=== PATIENT | male | born 1955 | race Two or more races ===

== ENCOUNTER 2025-07-16 13:11 | Inpatient (IN) | payer OTHER ==
[~2025-07-16] VITALS: Ht 165.1 cm; Wt 61.2 kg
[2025-07-16] MEDS ORDERED: ATORVASTATIN CA20 MG PO (13:27)
[2025-07-16] MEDS ORDERED: JENTADUETO XR1 EAC1 PO (13:27)
[2025-07-16] MEDS ORDERED: LACTOBACILLUS ACIDOPHILUS 1 CAP CAP PO ONE (14:15)
[2025-07-16] MEDS ORDERED: ONDANSETRON HCL 2 MG/ML VIAL IV ONE (14:15)
[2025-07-16] MEDS ORDERED: FAMOTIDINE/PF 20 MG/2 ML VIAL IV ONE (14:15)
[2025-07-16] MEDS ORDERED: 0.9 % SODIUM CHLORIDE 1,000 ML IV ONE (14:15)
[2025-07-16 15:00] LABS: BASO % 1.6 % (0.1-1.2); EOS # 0.00 (0.04-0.54); EOS % 0.0 % (0.7-7.0); LYMPH # 0.13 (1.18-3.74); LYMPH % 5.3 % (19.3-53.1); MEAN PLATELET VOLUME 10.70 fl (9.4-12.4); MONO # 0.20 (0.24-0.82); MONO % 8.1 % (4.7-12.5); NEUT # 2.07 (1.56-6.13); NEUT % 83.8 % (34.0-71.1); RED CELL DISTRIBUTION WIDTH 17.9 % (11.6-14.4)
[2025-07-16 15:34] LABS: ALT/SGPT 16.0 U/L (12-78); AST/SGOT 24.0 U/L (15-37); BILIRUBIN TOTAL 1.19 mg/dL (0.3-1.2); BILIRUBIN,CONJUGATED 0.52 mg/dL (0.0-0.2); BUN CREA RATIO 23.0 (7.0-25.0); CREATININE SERUM 2.04 mg/dL (0.70-1.30); GFR 32.35; GLOBULINA 3.7 G/DL (2.4-3.5); OSMOLALITY SERUM 307.0 MOSM/KG (275-295)
[2025-07-16 15:35] LABS: INR 1.36
[2025-07-16 15:39] LABS: GLUCOSE FASTING 280.0 mg/dL (65-100)
[2025-07-16] MEDS ORDERED: MORPHINE SULFATE 4 MG/ML VIAL IV ONE (16:45)
[2025-07-16] MEDS ORDERED: PIPERACILLIN/TAZOBACTAM SODIUM 3.375 GM VIAL IV ONE (17:15)
[2025-07-16] MEDS ORDERED: PIPERACILLIN/TAZOBACTAM SODIUM 2.25 GM VIAL IV ONE (18:15)
[2025-07-16 19:08] LABS: URINE APPEARANCE Cloudy; URINE BILIRRUBIN Negative (NEGATIVE); URINE BLOOD Small; URINE COLOR Dark Yellow; URINE KETONE Trace (NEGATIVE); URINE LEUKOCYTE Negative; URINE NITRATE Negative; URINE PROTEIN 30 (NEGATIVE); URINE UROBILINOGEN 0.2 E.U./dl
[2025-07-16 19:12] LABS: URINE BACTERIA 52.8 uL (0.0-1933); URINE CAST 11.29 uL (0.0-1.40); URINE EPITHELIAL CELLS 49.9 uL (0.0-38.8); URINE RBC 3.3 uL (0.0-20.8); URINE WBC 5.3 uL (0.0-23.2)
[2025-07-16 19:39] LABS: URINE GLUCOSE >=1000 MG/DL (NEGATIVE)
[2025-07-16 19:40] LABS: TYPE CELLS SQUAMOUS; URINE CRYSTALS FEW /HPF
[2025-07-16 19:41] LABS: URINE MUCUS SCANT
[2025-07-16] MEDS ORDERED: INSULIN LISPRO 1,000 UNIT/10 ML UNITS SUBCUTANEO PRN (20:00)
[2025-07-16] MEDS ORDERED: DEXTROSE 50 % IN WATER 0.5 G/ML DISP.SYRIN IV PRN (20:00)
[2025-07-16] MEDS ORDERED: MORPHINE SULFATE 4 MG/ML VIAL IV SCH (20:00)
[2025-07-16] MEDS ORDERED: ENOXAPARIN SODIUM 30 MG/0.3 ML SYRINGE SUBCUTANEO SCH (20:07)
[2025-07-16] MEDS ORDERED: ONDANSETRON HCL 4 MG in 0.9 % SODIUM CHLORIDE 50 ML IV PRN (20:15)
[2025-07-16] MEDS ORDERED: MORPHINE SULFATE 2 MG/ML CARTRIDGE IV PRN (20:15)
[2025-07-16] MEDS ORDERED: ENOXAPARIN SODIUM 30 MG/0.3 ML SYRINGE SUBCUTANEO ONE (20:15)
[2025-07-16] MEDS ORDERED: 0.9 % SODIUM CHLORIDE 1,000 ML IV SCH (20:15)
[2025-07-16] MEDS ORDERED: CIPROFLOXACIN IN 5 % DEXTROSE 200 ML IV SCH (21:00)
[2025-07-16 22:50] LABS: ABG PH 7.249 (7.35-7.45); ABG PO2 115.1 mmHg (80-100); BICARBONATE 8.6 mmol/l (23-25); o2 21 %
[2025-07-17] VITALS (24 sets, daily range): BP systolic 55–105; BP diastolic 46–94; O2SAT 95–100
[2025-07-17 00:06] LABS: BUN CREA RATIO 22.0 (7.0-25.0); CREATININE SERUM 2.29 mg/dL (0.70-1.30); GFR 28.31; GLUCOSE FASTING 272.0 mg/dL (65-100); OSMOLALITY SERUM 308.0 MOSM/KG (275-295)
[2025-07-17 08:00] LABS: ALT/SGPT 68.0 U/L (12-78); AST/SGOT 114.0 U/L (15-37); BILIRUBIN TOTAL 0.76 mg/dL (0.3-1.2); BUN CREA RATIO 23.0 (7.0-25.0); CREATININE SERUM 2.27 mg/dL (0.70-1.30); GFR 28.6; GLOBULINA 2.4 G/DL (2.4-3.5); GLUCOSE FASTING 163.0 mg/dL (65-100); OSMOLALITY SERUM 308.0 MOSM/KG (275-295)
[2025-07-17 09:38] LABS: BASO % 1.0 % (0.1-1.2); EOS # 0.05 (0.04-0.54); EOS % 2.4 % (0.7-7.0); LYMPH # 0.11 (1.18-3.74); LYMPH % 5.3 % (19.3-53.1); MEAN PLATELET VOLUME 10.60 fl (9.4-12.4); MONO # 0.27 (0.24-0.82); NEUT # 1.58 (1.56-6.13); NEUT % 76.4 % (34.0-71.1); RED CELL DISTRIBUTION WIDTH 17.8 % (11.6-14.4)
[2025-07-17 09:56] LABS: MONO % 13.0 % (4.7-12.5)
[2025-07-17] MEDS ORDERED: SODIUM CHLORIDE 0.45 % 1,000 ML IV STA (16:41)
[2025-07-17] MEDS ORDERED: NOREPINEPHRINE BITARTRATE 8 MG in DEXTROSE 5 % IN WATER 250 ML IV SCH ×2 (16:45→17:00)
[2025-07-17] MEDS ORDERED: AA 4.25%/CAL/LYTES/DEXT 5% 1,000 ML PERIFERAL SCH (17:00)
[2025-07-17] MEDS ORDERED: PANTOPRAZOLE SODIUM 40 MG/VIAL VIAL IV STA (17:09)
[2025-07-17] MEDS ORDERED: NOREPINEPHRINE BITARTRATE 4 MG in DEXTROSE 5 % IN WATER 250 ML IV SCH ×2 (22:00)
[2025-07-18] VITALS (16 sets, daily range): BP systolic 76–131; BP diastolic 51–78; O2SAT 98–100
[2025-07-18 08:19] LABS: BASO % 0.6 % (0.1-1.2); EOS # 0.03 (0.04-0.54); EOS % 1.7 % (0.7-7.0); LYMPH # 0.09 (1.18-3.74); LYMPH % 5.1 % (19.3-53.1); MONO # 0.19 (0.24-0.82); MONO % 10.8 % (4.7-12.5); NEUT # 0.12 (1.56-6.13); NEUT % 6.8 % (34.0-71.1); RED CELL DISTRIBUTION WIDTH 18.5 % (11.6-14.4)
[2025-07-18 08:48] LABS: VLDL 25 (0-39)
[2025-07-18 08:50] LABS: CHOL HDL RATIO 6.3 (0-5.0); HDL 8 mg/dl (40-60); LDL 17 mg/dl (0-130)
[2025-07-18 08:53] LABS: ALT/SGPT 875.0 U/L (12-78); BILIRUBIN TOTAL 1.03 mg/dL (0.3-1.2); BUN CREA RATIO 16.0 (7.0-25.0); CREATININE SERUM 3.88 mg/dL (0.70-1.30); GFR 15.41; GLOBULINA 1.7 G/DL (2.4-3.5); GLUCOSE FASTING 95.0 mg/dL (65-100); OSMOLALITY SERUM 305.0 MOSM/KG (275-295)
[2025-07-18 09:00] LABS: AST/SGOT 1526.0 U/L (15-37)
[2025-07-18] MEDS ORDERED: PIPERACILLIN/TAZOBACTAM SODIUM 4.5 GM VIAL IV SCH (09:00)
[2025-07-18] MEDS ORDERED: PANTOPRAZOLE SODIUM 40 MG/VIAL VIAL IV SCH (09:00)
[2025-07-18 09:58] LABS: BAND MAN 28.0 %; BASOPHIL MAN 0.0 %; EOSINOPHIL MAN 4.0 %; LYMPHOCYTE MAN 4.0 %; METAMYELOCYTE 28.0 %; MONOCYTE MAN 12.0 %; MYELOCYTE 8.0 %; NEUTROPHILS MAN 6.0 %
[2025-07-18] MEDS ORDERED: RINGERS SOLUTION,LACTATED 1,000 ML IV SCH (11:13)
[2025-07-18] MEDS ORDERED: CALCIUM GLUCONATE 100 MG/ML VIAL IV NR (11:15)
[2025-07-18 12:33] LABS: ABG PH 7.205 (7.35-7.45)
[2025-07-18 12:37] LABS: ABG PO2 144.6 mmHg (80-100); BICARBONATE 6.9 mmol/l (23-25); o2 32 %
[2025-07-18] MEDS ORDERED: SODIUM BICARBONATE 1 MEQ/ML DISP.SYRIN 50ML IV SCH (14:45)
[2025-07-18] MEDS ORDERED: SODIUM BICARBONATE 150 MEQ in DEXTROSE 5 % IN WATER 1,000 ML IV SCH (15:00)
[2025-07-18] MEDS ORDERED: AMIODARONE HCL 900 MG in DEXTROSE 5 % IN WATER 500 ML IV SCH (23:15)
[2025-07-19] VITALS (17 sets, daily range): BP systolic 77–127; BP diastolic 47–76; O2SAT 97–100
[2025-07-19] MEDS ORDERED: 0.9 % SODIUM CHLORIDE 1,000 ML IV SCH (08:00)
[2025-07-19 10:55] LABS: ABG PH 7.200 (7.35-7.45); ABG PO2 114.4 mmHg (80-100); BICARBONATE 9.0 mmol/l (23-25)
[2025-07-19 10:56] LABS: o2 32 %
[2025-07-19] MEDS ORDERED: MEROPENEM 500 MG/VIAL VIAL IV NR (13:00)
[2025-07-19 13:11] LABS: BASO % 0.7 % (0.1-1.2); EOS # 0.06 (0.04-0.54); EOS % 4.0 % (0.7-7.0); LYMPH # 0.06 (1.18-3.74); LYMPH % 4.0 % (19.3-53.1); MEAN PLATELET VOLUME 11.10 fl (9.4-12.4); MONO # 0.18 (0.24-0.82); NEUT # 1.17 (1.56-6.13); NEUT % 78.5 % (34.0-71.1); RED CELL DISTRIBUTION WIDTH 18.8 % (11.6-14.4)
[2025-07-19 13:15] LABS: MONO % 12.1 % (4.7-12.5)
[2025-07-19 13:36] LABS: INR 2.15
[2025-07-19 14:02] LABS: UREA CLEARANCE 0.2 ML/MIN
[2025-07-19 14:08] LABS: ALT/SGPT 651 U/L (12-78); AST/SGOT 875 U/L (15-37); BILIRUBIN TOTAL 2.79 mg/dL (0.3-1.2); BILIRUBIN,CONJUGATED 1.95 mg/dL (0.0-0.2); GLOBULINA 1.5 G/DL (2.4-3.5); GLUCOSE FASTING 172 mg/dL (65-100); OSMOLALITY SERUM 301 MOSM/KG (275-295); VLDL 18 (0-39)
[2025-07-19 14:28] LABS: BUN CREA RATIO 17 (7.0-25.0); CHOL HDL RATIO 6.3 (0-5.0); GFR 14.14; LDL 24 mg/dl (0-130)
[2025-07-19 14:30] LABS: CREATININE SERUM 4.18 mg/dL (0.70-1.30)
[2025-07-19 14:32] LABS: HDL 8 mg/dl (40-60)
[2025-07-19] MEDS ORDERED: CALCIUM GLUCONATE 100 MG/ML VIAL IV NR (15:45)
[2025-07-19] MEDS ORDERED: PIPERACILLIN/TAZOBACTAM SODIUM 2.25 GM in DEXTROSE 5 % IN WATER 50 ML IV SCH (17:00)
[2025-07-19] MEDS ORDERED: SODIUM BICARBONATE 1 MEQ/ML DISP.SYRIN 50ML IV SCH (19:45)
[2025-07-19] MEDS ORDERED: FAT EMULSIONS 250 ML IV SCH (21:00)
[2025-07-19] MEDS ORDERED: MEROPENEM 500 MG/VIAL VIAL IV SCH (21:00)
[2025-07-19] MEDS ORDERED: NOREPINEPHRINE BITARTRATE 8 MG in DEXTROSE 5 % IN WATER 250 ML IV SCH (22:00)
[2025-07-20] VITALS (16 sets, daily range): BP systolic 82–160; BP diastolic 44–94; O2SAT 99–100
[2025-07-20] MEDS ORDERED: NITROGLYCERIN 1 INCH OINT..GM. TD SCH (06:38)
[2025-07-20] MEDS ORDERED: SODIUM BICARBONATE 50MEQ/50ML VIAL IV SCH ×2 (08:00→12:00)
[2025-07-20] MEDS ORDERED: MORPHINE SULFATE 4 MG/ML CARTRIDGE IV PRN (11:30)
== END 2025-07-20 21:50 | disposition expired | DRG 374 ==
LOC: ER 13:11 → SURH 20:39 → ICU 20:39
PROVIDERS: General Practice; Internal Medicine; Internal Medicine Nephrology; ADMIT Internal Medicine; ATTEND Internal Medicine
PROC: B020ZZZ Computerized Tomography (CT Scan) of Brain (ICD-10-PCS; 2025-07-16)
PROC: BW21ZZZ Computerized Tomography (CT Scan) of Abdomen and Pelvis (ICD-10-PCS; 2025-07-16)
PROC: 8E0ZXY6 Isolation (ICD-10-PCS; 2025-07-16)
PROC: 4A12X4Z Monitoring of Cardiac Electrical Activity, External Approach (ICD-10-PCS; 2025-07-17)
PROC: 0D9670Z Drainage of Stomach with Drainage Device, Via Natural or Artificial Opening (ICD-10-PCS; 2025-07-17)
PROC: 30243R1 Transfusion of Nonautologous Platelets into Central Vein, Percutaneous Approach (ICD-10-PCS; principal; 2025-07-19)
PROC: 02HV33Z Insertion of Infusion Device into Superior Vena Cava, Percutaneous Approach (ICD-10-PCS; 2025-07-19)
PROC: B548ZZA Ultrasonography of Superior Vena Cava, Guidance (ICD-10-PCS; 2025-07-19)
PROC: 30233N1 Transfusion of Nonautologous Red Blood Cells into Peripheral Vein, Percutaneous Approach (ICD-10-PCS; 2025-07-20)
DX: C20 Malignant neoplasm of rectum (principal); K55.059 Acute (reversible) ischemia of intestine, part and extent unspecified; K72.00 Acute and subacute hepatic failure without coma; R65.21 Severe sepsis with septic shock; E87.21 Acute metabolic acidosis; K56.0 Paralytic ileus; N17.9 Acute kidney failure, unspecified; D61.818 Other pancytopenia; G93.49 Other encephalopathy; R06.03 Acute respiratory distress; R57.8 Other shock; D69.59 Other secondary thrombocytopenia; D64.81 Anemia due to antineoplastic chemotherapy; D63.0 Anemia in neoplastic disease; D70.1 Agranulocytosis secondary to cancer chemotherapy; J43.8 Other emphysema; K63.89 Other specified diseases of intestine; E11.65 Type 2 diabetes mellitus with hyperglycemia; Z79.84 Long term (current) use of oral hypoglycemic drugs; Z92.21 Personal history of antineoplastic chemotherapy; Z92.3 Personal history of irradiation; Z66 Do not resuscitate; Z87.891 Personal history of nicotine dependence